=== PATIENT | male | born 1965 | race Caucasian/White ===

== ENCOUNTER 2021-12-22 13:46 | Emergency (ER) | payer OTHER ==
[~2021-12-22] VITALS: Ht 182.9 cm; Wt 158.8 kg
[~2021-12-22 13:46] MED LIST: FISH OIL EC 1,1 EACH PO; IBUPROFEN600 MG PO; LISINOPRIL20 MG PO; SIMVASTATIN20 MG PO
== END 2021-12-22 16:35 | disposition home or self-care (01) ==
LOC: ED 13:46
DX: R79.9 Abnormal finding of blood chemistry, unspecified (principal); I10 Essential (primary) hypertension; F17.200 Nicotine dependence, unspecified, uncomplicated; Z79.899 Other long term (current) drug therapy
CPT/HCPCS: 99283

== ENCOUNTER 2022-03-10 13:37 | Inpatient (IN) | payer OTHER ==
[~2022-03-10] VITALS: Ht 182.9 cm; Wt 153.0 kg
--- NOTE | 2022-03-11 00:15 | NUR ---
DR. STOLL NOTIFIED OF PT'S ABG. NEW ORDERS GIVEN FOR AN 0200 ABG, 0600 CXR, AND TO DRAW PT, PTT PER HEPARIN DRIP PROTOCOL. NEW ORDERS TO BE PLACED. RT NOTIFIED OF 0200 ABG. WILL CONTINUE PLAN OF CARE.
--- NOTE | 2022-03-11 00:26 | NUR ---
heparin bolus and heparin drip started by this RN. verified with pump house engineer and radu DAWN.
--- NOTE | 2022-03-11 00:50 | NUR ---
PT ARRIVED TO CCU AWAKE AND ALERT UPON ARRIVAL ON 6L O2 OXYMASK. CHEST TUBE NOTED AND IN PLACE, SITE C/D/I, SEROSANGUINOUS DRAINAGE NOTED IN TUBE. PT ABLE TO STAND UP FROM E.D GURNEY AND PIVOT AROUND INTO THE CCU BED. RT ARRIVED SHORTLY AFTER AND PLACED PT ON THE BIPAP AT 14/6, FIO2 100%, RR 10. SPO2 NOTED TO BE AT 100%. LÓPEZ HUYNH IN AT THIS TIME TO ASSIST AND ADMINISTER PT'S SCHEDULED HEPARIN BOLUS AND HEPARIN DRIP. VITALS TAKEN AT THIS TIME, AND SCHEDULED IV ALBUMIN STARTED (SEE MAR). IV LEVOFLOXACIN TO BE STARTED AFTER ALBUMIN HAS INFUSED. HEPARIN ON AT 1900 UNITS/HR, RATE VERIFIED WITH LÓPEZ HUYNH. ASSESSMENT THEN COMPLETED (SEE CHART). PT ALERT AND ORIENTED X4, HEART RYTHM REGULAR, UPPER LOBES CLEAR, RIGHT LOWER LOBE IS DIMINISHED WITH A RUB, LEFT LOWER LOBE IS DIMINISHED/CLEAR. CHEST TUBE SITE ON RIGHT SIDE CONTAINS A DRESSING THAT IS C/D/I. CHEST TUBE SET TO WALL SUCTION. SEROSANGUINOUS CONTENTS IN TUBING OF CHEST TUBE AND IS DRAINING. ABODMEN OBESE, ROUND, ACTIVE, NO PAIN WHEN PALPATED. PULSES ARE STRONG, CAPILLARY REFILL BRISK, PT DENIES N&T TO EXTREMITIES. PT REPORTS NO FURTHER NEEDS AT THIS TIME WHEN ASKED AND REMAINS RESTING IN BED. CALL LIGHT IN REACH, BED IN LOWEST POSITION, IV HEPARIN AND IV ALBUMIN INFUSING, WILL CONTINUE PLAN OF CARE.
--- NOTE | 2022-03-11 00:55 | NUR ---
RT NOTIFIED THIS RN THAT PT FIO2 WAS DECREASED TO 80%. PT SPO2 MAINTAINING AT 100%, WILL CONTINUE PLAN OF CARE.
--- NOTE | 2022-03-11 01:30 | NUR ---
PT RESTING IN BED RESTING WITH EYES CLOSED. PT AWOKE EASILY AND WAS ORIENTED. PT REMAINS ON THE BIPAP AT PREVIOUS SETTINGS, SPO2 100%. PT HEPARIN DRIP AND ALBUMIN INFUSING AT ORDERED RATES. PT STATES HE NEEDS TO VOID, PT ASSISTED UP AND WAS ABLE TO VOID STANDING AT THE BEDSIDE PT PARTIALLY MISSED URINAL AND VOIDED ON FLOOR. X1 AND 375 CONCENTRATED URINE MEASURED. PT BACK IN BED AFTER FLOOR AND FEET WERE CLEANED. PT SPO2 MAINTAINED AT 100% WHILE ON THE BIPAP AT THIS TIME. IV ALBUMIN COMPLETED, IV ABX STARTED AND NOW INFUSING. PT REPORTS NO FURTHER NEEDS AT THIS TIME WHEN ASKED, PT PROVIDED WITH SIPS OF WATER. PT'S SISTER NOW IN THE ROOM AT THE BEDSIDE, CALL LIGHT IN REACH, BED IN LOWEST POSITION, CHEST TUBE DRAINING SEROSANGUINOUS FLUID, BIPAP ON, IV HEPARIN, AND IV ABX INFUSING. WILL CONTINUE PLAN OF CARE.
--- NOTE | 2022-03-11 02:40 | NUR ---
ABG RESULTS REPORTED TO DR.REDDY DODD SPOKE TO RT AT THIS TIME WELL. ORDERS FOR VBG AT 0500.
--- NOTE | 2022-03-11 02:55 | NUR ---
PT RESTING IN BED AT THIS TIME, BIPAP ON AT NEW SETTINGS OF 18/4 AND 60% FIO2. PT'S SPO2 MAINTAINING AT 97%. HEPARIN DRIP INFUSING AT ORDERED RATE. PT IN NO APPARENT DISTRESS AT THIS TIME AND WAS LEFT UNDISTURBED. PT'S SISTER REMAINS AT THE BEDSIDE COUGH SLEEPING. CALL LIGHT IN REACH, BED IN LOWEST POSITION, WILL CONTINUE PLAN OF CARE.
--- NOTE | 2022-03-11 03:55 | NUR ---
PT RESTING IN BED WITH EYES CLOSED ON THE BIPAP. SETTINGS UNCHANGED. SCHEDULED UNASYN STARTED AND NOW INFUSING AT ORDERED RATE. PT IN NO APPARENT DISTRESS AT THIS TIME AND WAS LEFT UNDISTURBED. CALL LIGHT IN REACH, WILL CONTINUE PLAN OF CARE.
--- NOTE | 2022-03-11 06:00 | NUR ---
THIS RN IN TO DRAW LABS. PT LAYING IN BED RESTING WITH EYES CLOSED. PT REMAINS ON THE CPAP AT PREVIOUS SETTINGS. IV ABX COMPLETED, PT SALINE LOCKED. HEPARIN DRIP STILL INFUSING. LABS DRAWN FROM IV AND SENT TO LAB. UPON RETURNING RN RALPH IN ROOM, PT AWAKE AND ALERT STATING HE NEEDED TO VOID. PT PLACED ON 15L OXYMASK AND WAS ABLE TO STAND AND VOID INTO BSC. PT ABLE TO GET BACK INTO BED, VITALS TAKEN, PT THEN PLACED BACK ON THE BIPAP. ASSESSMENT THEN COMPLETED. PT ALERT AND ORIENTED X4 AT THIS TIME, HEART RYTHM REGULAR. WHEEZES HEARD ON PT'S LEFT UPPER AND LOWER LOBE. RIGHT UPPER LOBE IS CLEAR, RIGHT LOWER LOBE IS DIMINISHED. PT ABODMEN SOFT, ROUND, AND ACTIVE. PULSES STRONG. CHEST TUBE REMAINS INTACT, DRAINING SEROSANGUINOUS FLUID. SITE IS C/D/I WITH TAPE INTACT. BANDAID NOTED ON RIGHT UPPER BACK WELL THAT IS C/D/I. IMAGING AND RT IN AFTERWARDS, CHEST X-RAY TAKEN BY IMAGING TEAM. PT REMAINS IN BED RESTING ON THE BIPAP AND HEPARIN DRIP. PT REPORTS NO NEEDS WHEN ASKED AND IS NOW WATCHING TV. CALL LIGHT IN REACH, BED IN LOWEST POSITION, WILL CONTINUE PLAN OF CARE.
--- NOTE | 2022-03-11 06:55 | NUR ---
DR STOLL NOTIFIED OF PT'S LABS. ORDERS GIVEN TO LEAVE HEPARIN DRIP AT 1900 UNITS/HR AND DRAW APTT AT 1200. WILL CONTINUE PLAN OF CARE.
--- NOTE | 2022-03-11 07:45 | NUR ---
PATIENT SHIFT REPORT RECIEVED FROM WOOL CLASSER RN. PATIENT RESTING IN BED ON BIPAP AT THIS TIME. PATIENTS SISTER AT THE BEDSIDE. WILL CONTINUE TO CLOSELY MONITOR.
[2022-03-11] MEDS ORDERED: POTASSIUM CHLO20 ME1 PO (07:49)
[2022-03-11] MEDS ORDERED: POTASSIUM CHLO10 ME1 PO (07:49)
[2022-03-11] MEDS ORDERED: FUROSEMIDE40 MG PO (07:49)
--- NOTE | 2022-03-11 08:15 | NUR ---
THIS RN IN TO DO ASSESSMENT. PATIENTS BREATH SOUNDS CLEAR AND DIMINISHED. PATIENT HAS A CHEST TUBE TO LEFT SIDE. NO CREPITUS NOTED. PATIENT REPORTS MILD PAIN AT SITE THAT IS TOLERABLE. CHEST TUBE IS TO SUCTION. -20 AND BEVEL EXTENDED TO OUT POSITION. NO AIR LEAK. PATIENT ON BIPAP 18/4 WITH 60% FIO2. PATIENT CALLS APPROPRIATELY. UPDATED ON PLAN OF CARE. WILL CONTINUE TO CLOSELY MONITOR.
--- NOTE | 2022-03-11 10:00 | NUR ---
CALL LIGHT ANSERED, PATIENT NEEDING TO USE THE URINAL. PATIENT STANDING AT SIDE OF BED WITH WIFES ASSISTANCE. O2 INCREASED TO 12L WITH ACTIVITY. PATIENT NOW BACK TO BED, CHEST TUBE AND OXY MASK IN PLACE. CALL LIGHT IN EASY REACH
--- NOTE | 2022-03-11 10:00 | NUR ---
PATIENT TAKEN OF BIPAP TO TAKE MEDS AND DISCUSS PLAN OF CARE WITH PATIENT AND HIS . PATIENT REPOSITIONED WITH 2 STAFF ASSIST. PATIENT PLACED ON 8L OXYMASK AND IS TOLERATING WELL. PATIENT ATE A COUPLE BITES OF BREKFAST. PATIENTS STEPPED OUT WITH THIS RN AND STATED WHEN PATIENT GOT LAID OFF LAST MONTH HE WENT FROM SMOKING 2 PACKS OF CIGARETTES A DAY TO 3 PACKS. THE PAST WEEK OR 2 HE HAS ONLY SMOKED 1 PACK A DAY. PER PATIENTS PATIENT DRINKS ABOUT 12 BEERS A WEEK THE PAST SEVERAL WEEKS. PER HER THIS IS ABOUT A 90% REDUCTION IN ALCOHOL INTAKE THAN ABOUT 6 MONTHS AGO. AT THAT TIME PATIENT WENT THROUGH SOME WITHDRAWLS, BUT NEVER BECAME CONFUSED, HALLUCINATING, AND DENIED ANY SIEZURES. PATIENT IS AGREEABLE TO PLAN OF CARE. WILL CONTINUE TO CLSOELY MONITOR.
--- NOTE | 2022-03-11 10:15 | NUR ---
INTO SEE PATIENT, PATIENT AWAKE RESTING IN BED. AARON AT BEDSIDE. PATIENT IS NORMALLY INDEPENDENT AND LIVE AT HOME WITH HIS . PATIENT DOES NOT REQUIRE ANY DME AND HAS NO ISSUES WITH AMBULATION. PATIENT AND DENY FINANCIAL NEEDS AT THIS TIME. ANSWERED QUESTION REGARDING DISCHARGE PROCEDURE AND MEDICATIONS WITH . NO FURTHER QUESTIONS AT THIS TIME. PATIENT APPEARS TEARFUL AND STATES HE IS JUST LOOKING FORWARD TO GOING HOME.
--- NOTE | 2022-03-11 12:45 | NUR ---
MD STOLL IN TO SEE PATIENT. PATIENT OFF BIPAP AND ON OXYMASK AT 8L AT THAT TIME. PATIENT TOLERATING WELL. PATIENTS RR 18-22. PATIENTS FAMILY AT THE BEDSIDE. ALL QUESTIONS ANSWERED. PER MD STOLL. MD BINGHAM WILL CONSULT AND WILL COME SEE PATIENT. NO OTHER NEEDS AT THSI TIME. WILL CONTINUE TO CLOSELY MONITOR.
--- NOTE | 2022-03-11 14:34 | NUR ---
THIS RN IN AT THE BEDSIDE. PATIENT SITTING UP AT THE EDGE OF THE BED. PATIENT TOELRATING WELL. PATIENT DENIES PAIN AT CHEST TUBE SITE. PATIENT ON 8L OXYMASK. WILL TITRATE ABLE. PATIENT DENIES SOB. MEDICATIONS GIVEN SEE EMAR. PATIENT DENIES ANY OTHER NEEDS AT THIS TIME. WILL CONTINUE TO CLOSELY MONITOR.
--- NOTE | 2022-03-11 15:53 | NUR ---
THIS RN ASSISTED PATIENT UP TO THE CHAIR. PATIENTS FAMILY BACK AT THE BEDSIDE. PATIENT DENIES ANY OTHER NEES. PATIENT IS NOT USE TO SITTING AND RELAXING PER PATIENT. WILL CONTIUE TO CLOSELY MONITOR.
--- NOTE | 2022-03-11 17:05 | NUR ---
PATIENT SITTING UP IN THE CHAIR. PATIENT SWITCHED TO 4L NC SO HER COULD EAT. PATIENT TOELRATING WELL. PATIENTS FAMILY STEPPED OUT FOR THE EVENING. PATIENT DENIES ANY OTHER NEEDS AT THIS TIME. CALL LIGHT IN REACH. WILL CONTINUE TO CLOSELY MONITOR.
--- NOTE | 2022-03-11 18:16 | NUR ---
MD EMMANUELE IN TO SEE PATIENT. PATIENT SITTING UP IN THE CHAIR AT THIS TIME. MD REVIEWED PLAN OF CARE WITH PATIENT. ALL QUESTIONS ANSWERED. WILL MONITOR CHEST TUBE OUTPUT OVERNIGHT AND REASSESS IN THE AM FOR POTENTIAL TO REMOVE TUBE. PATIENT AGREEABLE TO PLAN. WILL CONTINUE TO CLOSELY MONITOR.
--- NOTE | 2022-03-11 19:30 | NUR ---
RECEIVED REPORT FROM AVTAR DAWN. pt SITTING IN CHAIR, TALKING WITH . NO REQUESTS AT THIS TIME.
--- NOTE | 2022-03-11 20:30 | NUR ---
IN TO DO ASSESSMENT. pt SITTING IN CHAIR. REPORTED SWELLING IN HIS FEET ENCOURAGED HIM TO ELEVATE LOWER EXTREMITIES. pt DID USE THE FOOT REST ON CHAIR FOR A SMALL AMOUNT OF TIME. pt HAS LOOSE COUGH. RUB ASCULTATED ON RIGHT LUNG. CHEST TUBE DRESSING DRY AND INTACT. SCANT AMOUNT OF SS OUTPUT NOTED IN CHEST TUBE. pt WILL CALL WHEN READY TO GET BACK TO BED. CALL LIGHT WITHIN REACH. AT BEDSIDE.
--- NOTE | 2022-03-11 21:07 | NUR ---
IN TO GIVE ANTIBIOTIC. pt RESTING IN CHAIR WITH FEET DOWN. STATES HE WILL GET TO BED "IN A BIT" REQUESTED THAT HE CALL FOR ASSISTANCE. CALL LIGHT WITHIN REACH.
--- NOTE | 2022-03-11 22:10 | NUR ---
pt MOVED BACK TO BED WITH ASSISTANCE. 300 MLS DARK YELLOW URINE OUT. pt HAS LEGS ELEVATED IN BED. RT CALLED FOR ASSISTANCE WITH BiPAP. CALL LIGHT WITHIN REACH.
--- NOTE | 2022-03-11 22:51 | NUR ---
IV ANTIBIOTIC COMPLETED. SL LEFT IV. RIGHT IV CONTINUES TO INFUSE HEPARIN DRIP PER ORDERS. NO REQUESTS FROM pt WHO IS RESTING IN BED WITH LEGS ELEVATED. ON BiPAP. CALL LIGHT WITHIN REACH.
--- NOTE | 2022-03-12 01:26 | NUR ---
pt SATS MID 80'S. IN TO ASSESS. pt ON NC AT 4L, INCREASED TO 6L SATS NOW LOW 90'S. pt RESTING IN BED WITH EYES CLOSED, RESPIRATIONS REGULAR AND UNLABORED. CALL LIGHT WITHIN REACH. APTT 80.4, NO TITRATION NECESSARY, HEPARIN DRIP REMAINS AT 2200 UNITS PER HOUR.
--- NOTE | 2022-03-12 02:34 | NUR ---
IN TO GIVE ANTIBIOTIC. pt RESTING IN BED WITH HOB ELEVATED. pt ON 6L VIA NC SATS LOW 90'S. SNORING AT TIMES SMALL APNEIC PHASES. RESPIRATION RATE 13. NEW BAG OF HEPARIN HUNG. CALL LIGHT WITHIN REACH.
--- NOTE | 2022-03-12 03:13 | NUR ---
IV ANTIBIOTIC INFUSION COMPLETED. SL. pt WOKE BRIEFLY, NO NEEDS AT THIS TIME. CALL LIGHT WITHIN REACH.
--- NOTE | 2022-03-12 06:55 | NUR ---
IN TO DO ASSESSMENT. pt HAD VOIDED DARK URINE IN URINAL, EMPTIED. pt REPORTS HE "FEELS GOOD" AND WAS ABLE TO SLEEP LAST NIGHT AFTER THE CPAP WAS OFF. ASSESSMENT DONE. PROVIDED ICE WATER. NO FURTHER REQUESTS AT THIS TIME. 75MLS SS DRAINAGE FROM CHEST TUBE COUNTED
--- NOTE | 2022-03-12 07:45 | NUR ---
PATIENT REPORT RECIEVED FROM CLINICAL LIAISON RN. PATIENT RESTING IN BED AT THIS TIME. PTT CAME BACK AND PER ORDERS HEPARIN GTT NEEDED TO BE INCREASED BY 100. HEPARIN GTT NOW 2300 PER ORDERS. RJ DAWN VERIFIED. X-RAY TECH AT THE BEDSIDE. NO OTHER ISSUES AT THIS TIME. WILL CONTINUE TO CLOSELY MONITOR.
--- NOTE | 2022-03-12 08:06 | NUR ---
PATIENTS ASSESSMENT COMPELTED. PATIENT RESTING IN BED AND DENIES WANTING TO GET UP AT THIS TIME. PATIENTS BREATH SOUNDS ARE CLEAR ON LEFT AND DIMINISHED ON THE RIGHT. PATIENT ON 6L NC. TURNED DOWN TO 5L NC. SPO2 92-95%. RR- 16-18. PATIENT DENIES SOB. PATIENTS BOWEL TONES ACTIVE. PATIENT HAS NOT HAD A BM FOR 2 DAYS, BUT DENIES NEEDING ANYTHIGN FOR CONSTIPATION. PATIENT STATES PAIN IS A 0 UNLESS PUSHING ON CHEST TUBE SITE AND THEN IT GOES UP TO A 3/10. PATIENT DENIES NEEDING PAIN MEDICATION. PATIENT IS HOPEFUL TO GET CHEST TUBE OUT TODAY. HE WOULD REALLY LIKE TO GO HOME IF POSSIBLE. NO OTHER NEEDS AT THIS TIME. CALL LIGHT IN REACH. WILL CONTINUE TO CLOSELY MONITOR.
--- NOTE | 2022-03-12 11:00 | NUR ---
MD STOLL IN TO SEE PATIENT. REVIEWED PLAN OF CARE WITH PATIENT. PATIENT IS AGREEABLE. PATIENT IS NOW ON 2L OXYGEN WITH SPO2 93%. WILL CONTINUE TO CLOSELY MONITOR. AWAITING MD BINGHAM TO CONSULT AND REVIEW X-RAY AND DRAINAGE AMOUNT. WILL CONTINUE TO CLOSELY MONITOR.
[2022-03-12] MEDS ORDERED: TRAZODONE HCL100 MG PO (12:25)
[2022-03-12] MEDS ORDERED: ASPIRIN EC325 MG PO (12:40)
[2022-03-12] MEDS ORDERED: VENTOLIN HFA18 GM (12:40)
--- NOTE | 2022-03-12 12:40 | NUR ---
PATIENT ASSESSMENT REMAINS UNCHANGED OTHER THAN CONTINUING TO TITRATE OXYGEN DOWN. PATIENT ON 2L NC. PATIENT WILL TRANSFER TO THE MEDICAL UNIT. PATIENT IS AGREEABLE PLAN OF CARE. NO OTHER NEEDS AT THIS TIME. WILL CONTINUE TO CLOSELY MONITOR.
[2022-03-12] MEDS ORDERED: PREDNISOLONE ACE5 ML OU (12:41)
--- NOTE | 2022-03-12 14:51 | NUR ---
MD BINGHAM IN TO SEE PATIENT. PATIENT UPDATED ON PLAN OF CARE. PATIENT IS AGREEABLE TO STAYING ANOTHER DAY AND LEAVING CHEST TUBE IN. REPORT GIVEN TO JOSE CARLOS DAWN. ALL QUESTIONS ANSWERED. WILL CONTINUE TO CLOSELY MONITOR.
--- NOTE | 2022-03-12 15:49 | NUR ---
PATIENTS PTT REQUIRED HEPARIN GTT TO GO UP ANOTHER 100 POINTS. VERIFIED WITH RJ DAWN. OMAR DAWN THEN TO START A NEW BAG OF HEPARIN IN ROOM 108 WHERE PATIENT WAS JUST TRANSFERED. PATIENT TOLERATED TRANSFER WELL. ALL BELONGINGS SENT WITH PATIENT. NO FURTHER QUESTIONS AT THIS TIME. PATIENT HAS CALL LIGHT. CHEST TUBE TO SUCTION. PATIENT ON 2L NC.
--- NOTE | 2022-03-12 16:00 | NUR ---
RN IN ROOM TO ROUND ON PT AFTER TRANSFER FROM CCU - PT UP IN CHAIR, AAO, CHEST TUBE TO SUCTION WITH NO AIR LEAK NOTED. PT DENIES ANY CHANGE IN S/S, DENIES NEEDS AT THIS TIME. 2L02 VIA NC IN PLACE.
--- NOTE | 2022-03-12 17:00 | NUR ---
RN IN ROOM TO ASSESS PT - PT UP IN CHAIR WATCHING TV. CHEST TUBE TO SUCTION - PT DENIES SOB, 2L NC IN PLACE WITH STABLE SPO2. ASSESSMENT UNCHANGED FROM PREVIOUS. HEPARIN DRIP CONFIRMED WITH CCU RN BASED ON RECENT APPT. CALL LIGHT IN REACH.
--- NOTE | 2022-03-12 19:07 | NUR ---
SHIFT REPORT RECEIVED FROM AVTAR BRANCH AT BEDSIDE. pt AWAKE AND RESTING IN BED, 2LNC IN PLACE, RR EVEN AND UNLABORED. NO DISTRESS NOTED. CHEST TUBE TO RIGHT SIDE WNL, DRESSING C/D/I- NO AIR LEAK NOTED AT THIS TIME. WILL CONTINUE TO MONITOR. HEPARIN DRIP IN PLACE AND INFUSING AT 2400UNITS/HR, SITES X2 WNL. NOW IN ROOM, CALL LIGHT IN REACH.
--- NOTE | 2022-03-12 20:05 | NUR ---
ASSESSMENT COMPLETE, NO CHANGES TO RIGHT CHEST TUBE APPEARANCE. IV SITE WNL, IV ABX INFUSING DIRECTED VIA LEFT FOREARM. IV HEPARIN REMAINS INFUSING AT 2400UNITS/HR VIA RIGHT HAND. VSS AND 2LNC IN PLACE, MINIMAL COURSENESS NOTED TO RIGHT UPPER LOBE. NO DISTRESS, RR EVEN AND UNLABORED. FRESH WATER PROVIDED, pt DENIES PAIN AND NAUSEA. CALL LIGHT REMAINS IN REACH.
--- NOTE | 2022-03-12 20:58 | NUR ---
UP IN CHAIR. ABX COMPLETED, LAB IN ROOM TO DRAW LABS
--- NOTE | 2022-03-12 21:40 | NUR ---
HEPARIN DRIP TITRATED PER EMAR, 2100 APTT 55.2- TITRATED FROM 2400UNITS/HR TO 2500UNITS/HR, IV SITE WNL. HEPARIN TITRATION VERIFIED WITH SECOND RN GELA. SCHEDULED LEVAQUIN ALSO INFUSING DIRECTED VIA LEFT FOREARM. NO ADDITIONLA NEEDS, pt ASSSITED FROM [facility] TO BED. CALL LIGHT IN REACH. 2LNC REMAINS IN PLACE. WILL MONITOR.
--- NOTE | 2022-03-12 23:59 | NUR ---
ROUNDED ON pt, pt RESTING QUIETLY IN BED. SPOT CHECKED SPO2- 2LNC REMAINS IN PLACE WITH 94% AND HR 64. NO NEEDS OR CONCERNS VERBALIZED. CHEST TUBE REMAINS WNL, NO AIR LEAK DETECTED. WILL CONTINUE TO MONITOR. CALL LIGHT IN REACH.
--- NOTE | 2022-03-13 00:10 | NUR ---
RT HINA AT RN STATION, RT TO DISCUSS O2 NEEDS AND BIPAP/CPAP USE WITH pt.
--- NOTE | 2022-03-13 00:45 | NUR ---
HEARD CPOX TO WALL MONITOR ALARMING. INTO ROOM PT WAS WITH EYES CLOSED, MOUTH BREATHING, SATS READING 78, GENTLY SHOOK PT, HE WOKE, HEARD ALARMS, SAID OH HERE WE GO. TOOK NEARLY A MIN FOR SATS TO BOUNCE BACK TO THE 90'S, O2 IN PLACE. WILL ALERT PT PRIMARY RN.
--- NOTE | 2022-03-13 01:08 | NUR ---
ROUNDED ON pt, pt RESTING IN BED WITH EYES CLOSED. ON 2LNC, SPO2 90'S, HR WNL. NO DISTRESS NOTED, CALL LIGHT IN REACH.
--- NOTE | 2022-03-13 01:30 | NUR ---
RT SANTAMARIA AND THIS RN IN ROOM AND DISCUSSING pt's SUSPECTED HX OF SLEEP APNEA, EDUCATION PROVIDED ON USE AND BENEFITS OF CPAP BY RT SANTMAARIA- pt DECLINED USE OF CPAP AT THIS TIME. AGREES TO SWITCH TO OXYMASK IF NEEDED, WILL CONTINUE TO MONITOR. NO FURTHER NEEDS OR CONCERNS.
--- NOTE | 2022-03-13 02:00 | NUR ---
IN ROOM, BEDSIDE SPO2 ALARMING, SPO2 IN THE 60'S. pt EASILY AWOKE TO VOICE AND WITHIN 30 SECONDS SPO2 BACK TO UPPER 80'S/LOW 90'S, pt THEN SWIHED FROM 2LNC TO 4LOXYMASK pt IS A MOUTH BREATHER, SPO2 NOW SUSTAINING IN MID 90'S. SCHEDULED IV ABX INFUSING DIRECTED VIA LEFT FOREARM AND NEW BAG IV HEPARIN HUNG AND MED/DOSE VERIFIED WITH SECOND RN GELA AT BEDSIDE. IV SITE ALSO REMAINS WNL. NO ADDITIONAL NEEDS, CALL LIGHT IN REACH. LAB AWARE AND AVAILABLE TO DRAW ORDERED 0340 ORDERED LAB. WILL CONTINUE TO MONITOR.
--- NOTE | 2022-03-13 02:52 | NUR ---
SPO2 ALARMING, UPON ENTERING ROOM, SPO2 WAS AT 94% BUT THEN DIPPED DOWN BRIEFLY TO 85% ON 4LOXYMAKS, pt TITRATED UP TO 6LOXYMASK, WILL CONTINUE TO MONITOR. CALL LIGHT IN REACH.
--- NOTE | 2022-03-13 04:17 | NUR ---
0340 APPT RESULTS WITHIN THERAPEUTIC PARAMETERS, RESULT OF 100.2. HEPARIN REMAINS INFUSING AT 2500 UNITS/HR, NO TITRATION NECESSARY AT THIS TIME. DATA SOFTWARE ENGINEER UPDATED.
--- NOTE | 2022-03-13 06:40 | NUR ---
ASSESSMENT COMPLETE, NO ACUTE CHANGES. VSS, pt ON 5L OXYMASK D/T SUSPECTED SLEEP APNEA. BEDSIDE SPO2 PROBE IN PLACE TO MONITOR, pt STATES, "YEAH IT'LL GO DOWN TO THE 50'S BEFORE I WAKE UP. I HAVE A MONITOR AT HOME". pt EDUCATED ON SLEEP APNEA AND O2 THERAPY. pt DENIES PAIN AND NAUSEA. IV SITE TO RIGHT HAND WNL, FLSUHES EASILY. HEPARIN CONTINUES TO INFUSE AT 2500 UNITS/HR. CHEST TUBE WNL, NO AIR LEAK NOTED AT THIS TIME. CONNECTED TO CONT SUCTION AND ORANGE BELLOW REMAINS BEYOND TRIANGLE MARKER. pt DNEIS CHEST PAIN AND SOB. CALL LIGHT IN REACH.
--- NOTE | 2022-03-13 07:15 | NUR ---
REPORT RECEIVED FROM NIGHT RN - PT RESTING IN BED WITH OXYMASK IN PLACE AT 5L. CPOX PLACED, SP02 92% - PLACED ON ON NC SO PT COULD DRINK COFFEE. CALL LIGHT IN REACH.
--- NOTE | 2022-03-13 07:40 | NUR ---
PATIENT UP IN CHAIR READY FOR BREAKFAST, AM CARES COMPLETED. WHEN PATIENT STOOD UP, HE STEPPED ON CHEST TUBE CAUSING CONNECTER TO DETACH. NURSE NOTIFIED. CALL LIGHT WITHIN REACH.
--- NOTE | 2022-03-13 08:40 | NUR ---
RN IN ROOM TO ASSESS PT - PT UP IN CHAIR WITH NC IN PLACE AT 2L, SPOT CHECK MAINTAINING SPO2 >92%. CHEST TUBE WAS ACCIDENTLY DISCONECTED AT CONNECTION SITE CLOSEST TO PT WHEN AMULATING OUT OF BED WITH CONSULTING MANAGER'S. [employer] PRODUCTION MANAGER NOTES NO AIR LEAK, SUCTION TO PARAMETERS, DRESSING C/D/I AND NO CHANGE IN S/S OR SOB OR 02 DEMAND. HEPARIN DRIP INFUSING AT APPROPRIATE RATE BASED ON LAST PTT VALUE. ORDER FOR RECHECK PLACED BASED OFF OF THIS RN INTERPRETATION OF ORDER SET AND TIME LAST VALUE WAS DRAWN. ABX INFUSING WITHOUT DIFFICULTY IN OTHER IV SITE. CHEST TUBE DRAINAGE MINIMAL, ONLY 15ML OVER LAST 12 HOURS. PT HOPEFUL TO HAVE IT DC'D TODAY. CALL LIGHT IN REACH, PT REQUESTS PRIVACY TO USE URINAL.
--- NOTE | 2022-03-13 09:39 | NUR ---
PATIENT IN CHAIR AFTER USING RESTROOM. NO COMPLAINTS OR OTHER NEEDS AT THIS TIME. VITALS AND I/O'S COMPLETE. CALL LIGHT WITHIN REACH.
--- NOTE | 2022-03-13 10:44 | NUR ---
RN IN ROOM TO ASSIST MD WITH CHEST TUBE REMOVAL - PT TOLERATED WELL WITHOUT PAIN OR COMPLICATIONS.
--- NOTE | 2022-03-13 11:38 | CONS ---
[facility] [place] [facility] [address], [place] [address] Signed DATE OF CONSULTATION: 03/11/2022 REQUESTING PHYSICIAN: Dr. Stoll. PROBLEM: Probable right parapneumonic effusion status post chest tube placement in the emergency room. HISTORY OF PRESENT ILLNESS: This morbidly obese 56-year-old white man, who is a son of Lavell Ledbetter, a former patient of mine (long since ). The patient presented to the emergency room having increasing shortness of breath over the past many weeks. He also has had associated lower extremity swelling and edema. He has had some right-sided chest pain in the past 2 weeks and his symptoms have become progressive. He came to the emergency room. He was evaluated by . Chest x-ray and CT scan was performed showing a moderate to large right-sided pleural effusion as well as right lower lobe segmental branch pulmonary emboli and opacity in the right middle and lower lobes suggestive of pneumonia or atelectasis. assuming his care in the emergency room, attempted a right-sided thoracentesis, which was unsuccessful based on his body habitus and subsequently a right chest tube was placed as he had some decompensation. He was said to have had approximately a L or more fluid withdrawn with the chest tube. This did make him feel quite a bit better. He was admitted under the care of Dr. Stoll to the intensive care unit for his problems. The patient was noted to have a D-dimer of 3.15 (normal less than 0.50). His white count was 12.6 with hematocrit of 55.8 and platelet count of 260,000. COVID serology was negative. Electrolytes were normal. Creatinine 1.01. BNP was 940 (normal to 125). Since his observation in the intensive care unit, he has not had that much out of his chest tube device. I see 180 mL in the receptacle currently. He has had improvement of his hypoxemia and dyspnea. He is now on 4 L nasal cannula oxygen, saturating at approximately 94%. PAST MEDICAL HISTORY: Significant for hypertension, hyperlipidemia, and obstructive sleep apnea, though not formally evaluated. SOCIAL HISTORY: He does smoke one-pack of cigarettes a day and does not drink alcohol. Electronically Signed By: MARIA C BIGNHAM MD 03/13/22 1138 PATIENT NAME: BEATRIZ WORKMAN CONSULTATION DATE OF : 69 REPORT #: [id number] PHYSICIAN: MARIA C BINGHAM MD PCP: NICOLE LÓPEZ-Jermaine REPORT IS CONFIDENTIAL AND NOT TO BE RELEASED WITHOUT AUTHORIZATION [facility] [address], [place] [address] Signed MEDICATIONS: At home include simvastatin, lisinopril, and ibuprofen largely. REVIEW OF SYSTEMS: He denies any hemoptysis. He has had bilateral leg swelling for a while. He does not feel subjectively short of breath at this time. PHYSICAL EXAMINATION: HEENT: Trachea is midline. He has no hoarseness. GENERAL: He is alert and oriented. He knows me from the past; I am familiar with his father in the past as well. CHEST: Shows an end-expiratory wheeze on the left side. Right side is clear, but breath sounds are distant bilaterally. HEART: Regular without murmur. ABDOMEN: Markedly obese. EXTREMITIES: Lower extremities showed a mild cyanotic appearance and definitely mildly edematous. There is no sign of ulceration. LABORATORY STUDIES: Today include a white count improved from 12.6 to 12.0 at 5 a.m. today. Hematocrit down to 53.8, platelets 241,000. Initial blood gas showed a respiratory acidosis; pH was 7.28, CO2 of 80.9, O2 of 74 94.6% saturation. Pleural fluid showed a total protein of 4.2 with fluid glucose of 108. I reviewed his imaging studies including his chest x-ray from 4 o'clock this morning, which showed bilateral bibasilar haziness and right-sided chest tube in place. With uncertainty, my part as to the extent of the proximal radiolucent hole (possibly subcutaneous). ASSESSMENT: The patient has been proven to have an elevated D-dimer as well as a pulmonary embolism and subsegmental pulmonary arterial branches in the right lower lobe. Anticoagulation has been initiated with heparin anticipating conversion to Coumadin. Concern was maintained as to thrombin inhibitor therapy given his significant obesity and might pull up the chest tube that is in place. General criteria for removal of the chest tube would be less than 50 mL per 8 hour shift (150 mL a day) and presuming that he does not have ongoing other problems including pneumonia and so forth. He is considered to have a parapneumonic effusion, which could be related to the pulmonary embolism well demonstrated on the right side or in addition to pneumonia. We would anticipate anticoagulation ultimately with Coumadin in his situation and likely the ability for prompt removal of chest tube on the right side. Electronically Signed By: MARIA C BINGHAM MD 03/13/22 1138 PATIENT NAME: BEATRIZ WORKMAN CONSULTATION DATE OF : 69 REPORT #: [id number] PHYSICIAN: MARIA C BINGHAM MD PCP: NICOLE LÓPEZ REPORT IS CONFIDENTIAL AND NOT TO BE RELEASED WITHOUT AUTHORIZATION [facility] [address] [place], [place] [address] Signed His underlying problem of course is probably hypoventilatory respiratory failure related to his significant obesity and so on. We will continue to monitor with Dr. Stoll and anticipate chest tube removal at the earliest opportunity depend on its output and appearance of the chest itself. MD GEMA Arredondo/LOCOL /[id number] cc: MD Nicole Landa FNP [place] Copies: ÁNGEL STOLL MD ~ Electronically Signed By: MARIA C BINGHAM MD 03/13/22 1138 PATIENT NAME: BEATRIZ WORKMAN CONSULTATION DATE OF : 69 REPORT #: [id number] PHYSICIAN: MARIA C BINGHAM MD PCP: NICOLE LÓPEZ REPORT IS CONFIDENTIAL AND NOT TO BE RELEASED WITHOUT AUTHORIZATION
--- NOTE | 2022-03-13 11:49 | NUR ---
RT IN ROOM WORKING WITH PT.
--- NOTE | 2022-03-13 13:15 | NUR ---
PT IN CHAIR. VITALS TAKEN. I'S AND O'S COMPLETED. NO COMPLAINTS AT THIS TIME. CALL LIGHT WITHIN REACH. NO FURTHER NEEDS AT THIS TIME.
--- NOTE | 2022-03-13 15:09 | NUR ---
RN IN ROOM TO ROUND ON PT AND HANG IV ABX. PT RESTING IN CHAIR, SP02 STABLE ON ROOM AIR BUT REQUIRES 1-2L 02 WITH AMBULATION. PT DENIES SOB OR CHEST PAIN POST CHEST TUBE REMOVAL. IV SITES TOLERATING INFUSIONS WITHOUT DIFFICULTY. CALL LIGHT IN REACH, DENIES FURTHER NEEDS AT THIS TIME.
[2022-03-13] MEDS ORDERED: LEVOFLOXACIN750 MG PO (15:29)
[2022-03-13] MEDS ORDERED: NICOTINE1 EAC2 TD (15:29)
[2022-03-13] MEDS ORDERED: ELIQUIS5 MG PO ×2 (15:31→15:48)
--- NOTE | 2022-03-13 16:25 | NUR ---
ADMINISTERED SCHEDULED ELIQUIS. WILL WAIT THEN TURN OFF HEPARIN. O2 SET UP WITH JASPER JOSEPH. JASPER SAID TO GO AHEAD AND DISCHARGE PLANNED HE WILL BE TO THE PT HOUSE IN 1.5 HOURS.
--- NOTE | 2022-03-13 16:36 | NUR ---
RX for Eliquis faxed to [facility] by this pharmacist and verified covered by insurance with $30 copay for month supply
== END 2022-03-13 17:35 | disposition home or self-care (01) | DRG 175 ==
LOC: ED 13:37 → CCU 13:39 → ED 03-11 00:10 → CCU 03-11 00:10 → MS 03-12 15:00
PROVIDERS: ADMIT Internal Medicine; ATTEND Internal Medicine
PROC: 0W9930Z Drainage of Right Pleural Cavity with Drainage Device, Percutaneous Approach (ICD-10-PCS; principal; 2022-03-10)
DX: I26.99 Other pulmonary embolism without acute cor pulmonale (principal); J18.9 Pneumonia, unspecified organism; J96.01 Acute respiratory failure with hypoxia; J96.02 Acute respiratory failure with hypercapnia; E66.2 Morbid (severe) obesity with alveolar hypoventilation; Z68.42 Body mass index [BMI] 45.0-49.9, adult; J91.8 Pleural effusion in other conditions classified elsewhere; Z20.822 Contact with and (suspected) exposure to COVID-19; E78.5 Hyperlipidemia, unspecified; I11.0 Hypertensive heart disease with heart failure; I50.810 Right heart failure, unspecified; F17.210 Nicotine dependence, cigarettes, uncomplicated; Z79.899 Other long term (current) drug therapy
CPT/HCPCS: 32551; 36415; 36600; 71045; 71260; 80048; 80053; 82803; 82945; 83605; 83615; 83880; 83986; 84157; 85025; 85379; 85610; 85730; 87070; 87075; 87205; 87502; 89051; 94660; 94667; 94668; 94760; 94761; 99285-25; A9270; C9803; J0295; J1644; J1940; J1956; J2250; J3010; P9047; U0003